=== PATIENT | male | born 1995 | race Caucasian/White ===

== ENCOUNTER 2020-06-08 01:12 | Inpatient (IN) | payer OTHER, MEDICAID, SELFPAY ==
[2020-06-08] VITALS (9 sets, daily range): BP systolic 97–130; BP diastolic 49–88; PULSE 57–102; RESP 12–18; TEMP 36.6–37.3; O2SAT 95–98; BMI 21.2; BMI 22.4
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
[2020-06-08 02:16] LABS: Absolute Neutrophil Count 11.8 X10^3/uL (2.0-7.7); Basophil% 0.6 % (0-1); Differential Indicated SCAN CRITERIA MET; Eosinophil# 0.19 X10^3/uL; Eosinophils% 1.2 % (0-5); Hematocrit 46.1 % (40-54); Lymphocyte % 12.8 % (19-41); Mean Corp Hgb Conc 34.7 g/dL (32-36); Mean Corpuscular Hgb 30.5 pg (27.0-32.0); Mean Platelet Vol. 10.5 fl (6.2-12.0); Monocyte# 2.09 X10^3/uL; Monocyte% 12.7 % (0-10); NRBC Flagged by Analyzer 0 % (0-5); Neutrophil # 11.84 X10^3/uL (2.7-7.7); Neutrophil % 72.2 % (47-70); POSITIVE DIFFERENTIAL YES; Platelet Count 245 K/mm3 (150-450); RBC Distribution Width CV 11.9 % (11.6-14.6); RBC Distribution Width SD 37.8 fl (35.1-43.9); Red Blood Count 5.24 M/mm3 (4.6-6.2); White Blood Count 16.4 K/mm3 (4.4-11.0)
[2020-06-08 02:30] LABS: Anion Gap 5 (5-15); BUN 12 mg/dL (7-18); BUN/Creat Ratio 5.3 RATIO (10-20); Calcium,Total 9.2 mg/dL (8.5-10.1); Chloride 108 mmol/L (98-107); Creatinine, Serum 2.25 mg/dL (0.70-1.30); EST Glomerular Filtration Rate 38 mL/min (>60); Est Glom Filt Rate - Afr Amer 46 mL/min (>60); Estimated Creatinine Clearance 52.41 ml/min; Glucose 98 mg/dL (74-106); Potassium 3.5 mmol/L (3.5-5.1); Sodium Level 141 mmol/L (136-145)
[2020-06-08 02:36] LABS: Amphetamine Urine VISTA NEGATIVE (<1000 ng/mL); Barbiturate Urine VISTA NEGATIVE (< 200 ng/mL); Benzodiazepine Urine VISTA NEGATIVE (< 200 ng/mL); Cocaine Urine VISTA NEGATIVE (< 300 ng/mL); Ecstacy Urine VISTA NEGATIVE (< 500 ng/mL); Methadone Urine VISTA NEGATIVE (< 300 ng/mL); PCP Urine VISTA NEGATIVE (< 25 ng/mL); THC Urine VISTA NEGATIVE (< 50 ng/mL); Vista UDS pH Range 6
[2020-06-08 02:45] LABS: Differential Comment SCANNED
--- NOTE | 2020-06-08 03:14 | RAD_ITS ---
STUDY: X-RAY CHEST REASON FOR EXAM: Male, 24 years old. Low-grade fever TECHNIQUE: Single AP portable view of the chest. COMPARISON: None. FINDINGS: The lungs are clear and expanded. There is no demonstrated pleural abnormality. Normal size heart. Normal mediastinum and ishan. Normal visualized pulmonary arteries. Normal visualized aortic arch and descending thoracic aorta. Normal visualized thoracic spine. Normal visualized ribs, clavicles, and shoulders. There is no demonstrated abnormality of the visualized soft tissue structures of the upper abdomen. RAD/Chest 1 View (Portable) IMPRESSION: Normal x-ray examination of the chest. Electronically Signed: Arash Melvin MD at 4:13 EDT Tel , Service support ,
[2020-06-08] MEDS: 0.9% Normal Saline 1,000 ML 999 ML IV (03:34)
[2020-06-08] MEDS: Ondansetron 4 MG/2 ML Vial IV (03:35)
[2020-06-08] MEDS: LORazepam 2 MG/ML Syringe 1 MG IV (03:35)
[2020-06-08 04:37] LABS: Probe Check PASS; Specimen Processing Control PASS
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
[2020-06-08 05:20] LABS: CPK Total, Creatine Kinase 192 U/L (39-308)
--- NOTE | 2020-06-08 06:43 | NURSING ---
Pt agitated. I assisted Greer DAVIS by pulling Vistaril & Catapres from accudose for her to give pt. Crissy Vincent RN, in room.
[2020-06-08] MEDS: hydrOXYzine PAM 25 MG Capsule 50 MG PO (06:45)
[2020-06-08] MEDS: cloNIDine HCl 0.1 MG Tablet PO (06:45)
[2020-06-08] MEDS: 0.9% Normal Saline 1,000 ML 125 ML IV ×2 (06:48→14:29)
[2020-06-08] MEDS: Nicotine Polacrilex 2 MG GUM PO ×2 (11:37→14:30)
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
[2020-06-08 12:49] LABS: Absolute Neutrophil Count 3.1 X10^3/uL (2.0-7.7); Basophil# 0.06 X10^3/uL; Basophil% 0.9 % (0-1); Eosinophil# 0.38 X10^3/uL; Eosinophils% 5.8 % (0-5); Hematocrit 38.4 % (40-54); Hemoglobin 12.8 g/dL (13.0-16.5); Lymphocyte % 35.2 % (19-41); Mean Corp Hgb Conc 33.3 g/dL (32-36); Mean Corpuscular Hgb 30.1 pg (27.0-32.0); Mean Corpuscular Volume 90.4 fL (80-94); Mean Platelet Vol. 10.2 fl (6.2-12.0); Monocyte# 0.67 X10^3/uL; Monocyte% 10.3 % (0-10); NRBC Flagged by Analyzer 0 % (0-5); Neutrophil # 3.11 X10^3/uL (2.7-7.7); Neutrophil % 47.6 % (47-70); Platelet Count 160 K/mm3 (150-450); RBC Distribution Width CV 12.2 % (11.6-14.6); RBC Distribution Width SD 39.7 fl (35.1-43.9); Red Blood Count 4.25 M/mm3 (4.6-6.2); White Blood Count 6.5 K/mm3 (4.4-11.0)
[2020-06-08 13:02] LABS: ALB/GLOB Ratio 1.3 RATIO (0.9-2.4); AST(SGOT) 22 U/L (15-37); Alanine Aminotransfer ALT/SGPT 17 U/L (16-61); Albumin, Serum 3.4 g/dL (3.2-5.0); Alkaline Phosphatase 60 U/L (45-117); Anion Gap 1 (5-15); BUN 16 mg/dL (7-18); BUN/Creat Ratio 10.8 RATIO (10-20); Calcium,Total 8.2 mg/dL (8.5-10.1); Chloride 112 mmol/L (98-107); Creatinine, Serum 1.48 mg/dL (0.70-1.30); EST Glomerular Filtration Rate 62 mL/min (>60); Est Glom Filt Rate - Afr Amer 75 mL/min (>60); Estimated Creatinine Clearance 83.71 ml/min; Globulin 2.7 g/dL (2.2-4.2); Glucose 79 mg/dL (74-106); Potassium 3.5 mmol/L (3.5-5.1); Protein, Total 6.1 g/dL (6.4-8.2); Sodium Level 143 mmol/L (136-145)
--- NOTE | 2020-06-08 14:10 | CASEMGMT ---
Call from Dr. Baez stating pt is medically cleared for psych eval at this time. DARRICK Lane, aware and states for Crisis to be called to complete evaluation. This RN CM to floor and Vanna, charge nurse, is already on phone calling Crisis for eval at this time. Sharon RN CM
--- NOTE | 2020-06-08 14:11 | DCINST_ITS ---
- Discharge Diagnoses Current Active Problems: Current Active and Chronic Problems Agitation (Acute) Threatening suicide (Acute) Renal insufficiency (Acute) Allergies/Adverse Reactions: Allergies bee venom protein (honey bee) Allergy (Verified 06/08/20 01:18) Swelling Medications to take at Discharge NK 06/08/20 Primary Care Physician: Care Physician,No Primary [Primary Care Provider] - Test Results: Test results from this visit will be discussed in further detail at your follow- up appointment, if applicable.
--- NOTE | 2020-06-08 14:15 | NURSING ---
crisis called and notified of order that patient is medically ready for their evaluation. Aware Abran from Crisis to return call.
--- NOTE | 2020-06-08 16:12 | NURSING ---
Abran from crisis center called in and talking to patient
--- NOTE | 2020-06-08 16:39 | DCINST_ITS ---
- Discharge Diagnoses Current Active Problems: Current Active and Chronic Problems Agitation (Acute) Threatening suicide (Acute) Renal insufficiency (Acute) You will use the following diet at home:: Regular Your food should be the consistency of: Regular Discharge Activity: May Not Drive Weight Bearing Status: Weight bearing as tolerated Call your doctor if you observe: Fever of 101 or Higher, Coldness, Increased Pa in, Numbness or Tingling, Change in Color, Inability to urinate, Inability to have a bowel movement, Shortness of breath, Dizziness, Fainting spells, Swelling in the ankles, Chest pain, Prolonged hiccoughing, Increased palpitations (irregular heartbeat), Calf discomfort, Uncontrolled pain Additional Instructions: Advised to quit substance use. Lot of water intake and rehydration. Allergies/Adverse Reactions: Allergies bee venom protein (honey bee) Allergy (Verified 06/08/20 01:18) Swelling Medications to take at Discharge NK 06/08/20 Primary Care Physician: Care Physician,No Primary [Primary Care Provider] - Test Results: Test results from this visit will be discussed in further detail at your follow- up appointment, if applicable.
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
--- NOTE | 2020-06-08 16:48 | NURSING ---
crisis interviewed pt over phone and they released pt to be dc'd and follow up with [facility] a pt told them that he was familiar with them and wants to return there, pt has spoke with them today over phone and requested his chart be faxed to them at this time-pt denies any suicidal, homicidal ideation, [place] suicide severity rating scale done per crisis was negative-dr ruggiero made aware
--- NOTE | 2020-06-08 17:42 | NURSING ---
pt d/c with ride from [facility], d/c to go to [facility] for rehab, pt ambulatory to door
[2020-06-10 12:12] LABS: Pathologist Review Reviewed
[2020-06-11 20:07] LABS: Creatine Kinase MB 0 % (0-3); Creatine Kinase MM 100 % (97-100); Creatine Kinase,Total,Serum 211 U/L (49-439); Macro I 0 % (Not Observed); Macro II 0 % (Not Observed)
[2020-06-11 20:54] LABS: Creatine Kinase BB 0 % (0)
== END 2020-06-08 17:41 | disposition home or self-care (01) | DRG 683 ==
LOC: ED 05:06 → MS3 05:18
PROVIDERS: Admitting Provider Student in an Organized Health Care Education/Training Program; Emergency Provider Emergency Medicine; Visit Provider Internal Medicine
DX: N17.9 Acute kidney failure, unspecified (principal); R45.851 Suicidal ideations; R45.1 Restlessness and agitation; F17.220 Nicotine dependence, chewing tobacco, uncomplicated; F11.90 Opioid use, unspecified, uncomplicated; F19.90 Other psychoactive substance use, unspecified, uncomplicated
CPT/HCPCS: 36415; 71045; 80048; 80053; 80307; 80320; 82550; 82552; 83735; 85025; 87040; 87635; 94799; 99285; J7030; A4216; G0480; J2405; U0003